=== PATIENT | male | born 1980 | race Two or more races ===

== ENCOUNTER 2024-04-24 23:17 | Emergency (ER) | payer MEDICAID, SELFPAY ==
[2024-04-24 23:38] VITALS: BP 157/85; PULSE 68; RESP 16; TEMP 36.8; O2SAT 99
--- NOTE | 2024-04-24 23:46 | EDRME_ITS ---
Rapid Medical Screening Exam [facility] Arrival date/time: 04/24/24 23:17 43-year-old male with no known medical history presents to the emergency room with a chief complaint of dizziness, lightheadedness, bilateral tingling in the hands x 2 hours. Patient states he had multiple episodes of the symptoms in the last 2 hours and per the patient was pale and diaphoretic. I have greeted and performed a focused initial assessment of this patient. A comprehensive ED assessment and evaluation of the patient, analysis of all test results, and completion of the medical decision making process will be conducted by additional ED providers. Chief Complaint: Dizziness Time Seen by Provider: 04/25/24 00:34 Vital signs: Vital Signs Temperature 98.3 F 04/24/24 23:38 Pulse Rate 68 04/24/24 23:38 Respiratory Rate 16 04/24/24 23:38 Blood Pressure 157/85 H 04/24/24 23:38 Pulse Oximetry (%) 99 04/24/24 23:38 Oxygen Delivery Method Room Air 04/24/24 23:38 Vital signs reviewed by provider: Yes
--- NOTE | 2024-04-24 23:46 | EKG_ITS ---
[facility] Test Date: 2024-04-24 Pat Name: FRANK PATRICIA Department: Room: - Gender: Male [employer]: : 1980 Requested By: Ozzy Pennington Order Number: [id number] Reading MD: Ozzy Pennington Measurements Intervals [place] Rate: 60 P: 52 MT: 123 QRS: 21 QRSD: 126 T: 31 QT: 407 QTc: 407 Interpretive Statements SINUS RHYTHM LEFT VENTRICULAR HYPERTROPHY AND ST-T CHANGE [VOLTAGE CRITERIA PLUS ST/T ABNORMALITY] No previous ECG available for comparison /store/S0/[id number].pdf
--- NOTE | 2024-04-24 23:46 | XR_ITS ---
Examination: CT brain head without contrast. 2-D sagittal coronal reconstructions Date and time of exam:Onset dizziness headaches lightheadedness today CTDI: vol (mGy):47.8 DLP: (mGycm):936 Technique: Multiple CT axial sections of the brain have been obtained, 5 mm slice thickness. Contrast has not been administered. 2-D sagittal, coronal reconstructions have been obtained Low dose protocols were performed. One or more of the following dose reduction techniques were used; automated exposure control, adjustment of the mA and/or KV according to patient size, use of iterative reconstruction technique. Findings: No significant ventricular enlargement. Intra-axial or extra-axial hemorrhage density is not seen. No mass effect or midline shift Basal cisterns are not remarkable. Fourth ventricle is midline. Cranial vault intact. Impression: Negative for acute hemorrhage, mass effect or midline shift
[2024-04-24] MEDS: MECLIZINE HCL 25 MG TABLET PO (23:52)
[2024-04-25 00:19] LABS: Basophils % (Auto) 0 % (0-2.5); Eosinophils # (Auto) 0.2 Thou/mm3 (0.0-0.5); Eosinophils % (Auto) 2 % (0-10); Hematocrit 43.7 % (41.0-53.0); Hemoglobin 15.2 g/dL (13.5-16.0); Immature Granulocytes % (Auto) 0 % (0-0); Immature Granulocytes Auto 0.02 Thou/mm3 (0.00-0.00); Lymphocytes # (Auto) 1.8 Thou/mm3 (1.0-4.8); Lymphocytes % (Auto) 25 % (10-50); Mean Corpuscular HGB Conc 34.8 g/dl (31.0-37.0); Mean Corpuscular Hemoglobin 29.7 pg (25.0-35.0); Mean Corpuscular Volume 85 fL (80-100); Monocytes # (Auto) 0.6 Thou/mm3 (0.0-0.8); Monocytes % (Auto) 8 % (0-12); Neutrophils # (Auto) 4.8 Thou/mm3 (1.8-7.7); Neutrophils % (Auto) 65 % (37-80); Nucleated Red Blood Cell % 0 /100 WBC (0); Platelet Count 185 Thou/mm3 (140-440); RDW Standard Deviation 38.1 fL (35.1-43.9); Red Blood Count 5.12 Miln/mm3 (4.50-5.90); White Blood Count 7.4 Thou/mm3 (3.8-10.6)
[2024-04-25 00:25] LABS: Alanine Aminotransferase 30 U/L (10-49); Albumin, Serum 4.8 gm/dL (3.5-5.0); Albumin/Globulin Ratio 1.8 (1.2-2.2); Alkaline Phosphatase 87 U/L (46-116); Anion Gap 8 (7-16); Aspartate Amino Transferase 21 U/L (0-34); BUN/Creatinine Ratio 17 Ratio (12-20); Bilirubin,Total 0.3 mg/dL (0.3-1.2); Blood Urea Nitrogen 17 mg/dL (9-23); Calcium 9.4 mg/dL (8.3-10.6); Calcium (Corrected) 9.4 mg/dL (8.5-10.1); Carbon Dioxide 27.9 mMol/L (20.0-31.0); Chloride 103 mMol/L (98-107); Globulin 2.6 gm/dL (2.3-3.5); Glucose 115 mg/dL (74-106); Osmolality,Calculated 280 (275-295); Potassium 3.7 mMol/L (3.4-5.1); Sodium 139 mMol/L (136-145); Total Protein 7.4 gm/dL (5.7-8.2); Troponin I < 0.020 ng/mL (0.0-0.045); eGFR > 60 See Note
[2024-04-25 00:36] LABS: Collection Type, Urine Clean Catch
--- NOTE | 2024-04-25 00:43 | PRELIM_ITS ---
CT scan of the head without intravenous contrast (axial sections with sagittal and coronal reformats) . April 25, 2024 at 0002 hoursClinical History: Dizziness/lightheaded.Comparison: No prior study is available for comparison.Findings:There is no evidence of intracranial hemorrhage, mass effect or mi dline shift. The ventricles and CSF spaces are unremarkable. The calvarium is unremarkable. The masto id air cells and the visualized paranasal sinuses are clear.Impression:No evidence of intracranial he morrhage, mass effect or midline shift. Report Electronically Signed By: Zachary Blackwell 04/25/2024 1 2:42:16 AM [EST]
[2024-04-25 00:48] LABS: Bacteria,Urine Rare; Bilirubin,Urine Negative (Negative); Blood,Urine Negative (Negative); Clarity,Urine Clear (Clear/Hazy); Color,Urine Colorless (Lt Yel-Yel); Glucose, Urine Negative (Negative); Ketones,Urine Negative (Negative); Leukocyte Esterase,Urine Negative (Negative); Nitrite,Urine Negative (Negative); PH,Urine 6.5 (5.0-7.0); Protein,Urine Negative (Neg - Trace); RBC,Urine 1 /hpf (0-3); Specific Gravity,Urine 1.009 (1.001-1.035); Squamous Epithelial Cell,Urine < 1 /hpf (0-5); Urobilinogen,Urine Negative mg/dL (0.0-1.0); WBC,Urine < 1 /hpf (0-5)
[2024-04-25 01:55] VITALS: BP 141/87; PULSE 61; RESP 16; TEMP 36.7; O2SAT 100
--- NOTE | 2024-04-25 02:21 | PD.EDDIZZY ---
ED Dizzyness RME/HPI General Chief Complaint: Dizziness Stated Complaint: DIZZINESS Time Seen by Provider: 04/25/24 00:34 Arrival date/time: 04/24/24 23:17 Limitations: no limitations RME / HPI RME / HPI Narrative: 04/24/24 23:17 43-year-old male with no known medical history presents to the emergency room with a chief complaint of dizziness, lightheadedness, bilateral tingling in the hands x 2 hours. Patient states he had multiple episodes of the symptoms in the last 2 hours and per the patient was pale and diaphoretic. I have greeted and performed a focused initial assessment of this patient. A comprehensive ED assessment and evaluation of the patient, analysis of all test results, and completion of the medical decision making process will be conducted by additional ED providers. ------- Dr. Purvis's Main ED Evaluation: 43yo male with no significant past medical history presents to the ED for a chief complaint of intermittent dizziness x today. Patient endorses having two episodes of dizziness today, reporting he was sweating and was concerned, so he came in for evaluation. He denies any chest pain, shortness of breath, N/V or any other associated symptoms. Denies any tobacco use. He is not on any medications. No known allergies. Patient states he feels better after being given meclizine. Related Data Previous Rx's ?Medication ?Instructions ?Recorded ibuprofen 800 mg tablet 800 mg PO Q8H PRN pain #30 tabs 07/15/21 Allergies Allergy/AdvReac Type Severity Reaction Status Date / Time No Known Allergies Allergy Verified 04/24/24 23:19 Review of Systems Review of Systems Systems Reviewed: All systems reviewed, normal except as documented ED Exam General Limitations: Present no limitations General appearance: Present alert and in no apparent distress Head Head exam: Present atraumatic Eye Eye exam: Present normal appearance, PERRL and EOMI ENT ENT exam: Present normal exam, normal oropharynx and mucous membranes moist Neck Neck exam: Present normal inspection, full ROM and trachea midline Chest Chest inspection: Present normal inspection and symmetric chest wall rise Respiratory Respiratory exam: Present normal lung sounds bilaterally Cardiovascular Cardiovascular exam: Present regular rate, normal rhythm and normal heart sounds Abdominal Exam Abdominal exam: Present soft and normal bowel sounds Extremities Exam Extremities exam: Present normal inspection and full ROM Back Exam Back exam: Present normal inspection and full ROM Neurological Exam Neurological exam: Present alert, oriented X3 and CN II-XII intact Psychiatric Psychiatric exam: Present normal affect and normal mood Skin Skin exam: Present warm, dry, intact and normal color Course Quality Measures none Orders Category Date Time Status EKG (ED ONLY) *Do not use* NOW Care 04/24/24 23:[address] head/brain wo con Stat Exams 04/24/24 23:46 Taken EKG (ED Only) Stat Exams 04/24/24 23:46 Draft CBC Stat Lab 04/24/24 23:55 Completed Comprehensive Metabolic Panel Stat Lab 04/24/24 23:55 Completed Troponin I Stat Lab 04/24/24 23:55 Completed Urinalysis Stat Lab 04/25/24 00:12 Completed Urine Culture Stat Lab 04/25/24 00:12 Received Meclizine HCl [Antivert] Med 04/24/24 23:46 Discontinued 25 mg PO X1 ONE Vital Signs Vital signs: Vital Signs Temperature 98.3 F 04/24/24 23:38 Pulse Rate 68 04/24/24 23:38 Respiratory Rate 16 04/24/24 23:38 Blood Pressure 157/85 H 04/24/24 23:38 Pulse Oximetry (%) 99 04/24/24 23:38 Oxygen Delivery Method Room Air 04/24/24 23:38 Pulse ox is 99% on room air, which is normal according to my interpretation. Dizziness Patient data External records reviewed:: [facility] previous records (Per chart review, patient has no relevant previous ED visits.) Clinical information provided by:: patient Social determinants that could affect healthcare access:: none Patient has the following chronic illnesses:: none How is presenting disease/condition affected by chronic disease/condition?: no chronic disease Evaluation data The following diagnostics were reviewed and interpreted by me:: lab results, radiology exam(s) and EKG tracing(s) Lab and/or radiology exams considered but not ordered:: none Interpretation Summary: CBC is normal, CMP is normal, Troponin is normal, UA is unremarkable, according to my interpretation. EKG done at 2351, NSR, rate of 60, LVH, no ST elevations or depressions, no STEMI, according to my interpretation. ------ Telerad Preliminary Report Draft Patient: FRANK PATRICIA [facility]. Record#: [id number] Birthdate: 1980 Age/Sex: 43 / M Location: [facility] Attending Dr: Ordering Physician: Date of Service: Procedure(s): Accession Number(s): cc: ~ CT scan of the head without intravenous contrast (axial sections with sagittal and coronal reformats). April 25, 2024 at 0002 hours Clinical History: Dizziness/lightheaded. Comparison: No prior study is available for comparison. Findings: There is no evidence of intracranial hemorrhage, mass effect or midline shift. The ventricles and CSF spaces are unremarkable. The calvarium is unremarkable. The mastoid air cells and the visualized paranasal sinuses are clear. Impression: No evidence of intracranial hemorrhage, mass effect or midline shift. Report Electronically Signed By: Zachary Blackwell 04/25/2024 12:42:16 AM [EST] Medications / Prescriptions Medications or Prescriptions considered but not ordered:: none Medication administrations:: Medication Administration History Discontinued Medications Meclizine HCl (Meclizine Hcl 25 Mg Tablet) 25 mg PO X1 ONE Stop: 04/24/24 23:47 Last Admin: 04/24/24 23:52 Dose: 25 mg Documented By: CVL see above Consultations Consultation(s) initiated? (list below): No Diagnosis Dizziness Differential Diagnosis: other (dehydration, electrolyte abnormality, vertigo, atypical presentation of CAD) Most likely diagnosis given after review of the tests above:: see below Admission Indicated Admission indicated?: not indicated Admission Request Was there a request for admission?: No Disposition Plan Disposition Plan: Discharge Discharge Attestation Discharge Attestation: The patient and all family members were given an opportunity to ask questions and understood the discharge instructions. Discharge instructions specifically effects, indications for sooner follow up or return to the emergency department, and the expected course of current diagnosis. Patient condition: Stable Discharge Plan Plan Patient Disposition: HOME (Self Care) Patient condition on transfer: Stable Prescriptions/Referrals Prescriptions/Med Rec: No Action ibuprofen 800 mg tablet 800 mg PO Q8H PRN (Reason: pain) Qty: 30 0RF Referrals: No Primary/Family,Physician [Primary Care Provider] - In 1 week Problem List Clinical Impression: Dizziness Patient/Caregiver Discharge Instructions Diet Instructions: Stay hydrated with Pedialyte and Gatorade. Education Materials: ED Dizziness, Uncertain Cause Additional Instructions: You will need to follow-up with your primary care physician to get your blood pressure checked daily for 1 week. Write it down and take it to your primary care physician. Return to emergency department if you have headache, chest pain, shortness of breath, worsening symptoms, or any other concerns. Print Language: Georgian Stand Alone Forms: Crys Award Info., Work/School Release, Patient Portal Info Letter
[2024-04-25 02:38] VITALS: BP 124/85; PULSE 62; RESP 18; TEMP 36.7; O2SAT 96
== END 2024-04-25 02:40 | disposition home or self-care (01) ==
PROVIDERS: Nurse Practitioner Family; Emergency Provider Emergency Medicine
DX: R42 Dizziness and giddiness (principal); R94.31 Abnormal electrocardiogram [ECG] [EKG]
CPT/HCPCS: 36415; 70450; 80053; 81001; 84484; 85025; 87086; 93005; 99284; A9270